=== PATIENT | female | born 1965 | race Caucasian/White ===

== ENCOUNTER 2017-09-29 13:42 | Emergency (ER) | payer BC ==
[~2017-09-29] VITALS: Ht 165.1 cm; Wt 105.0 kg
[~2017-09-29 13:42] MED LIST: BENICAR20 MG PO; Glucophage PO; Hydrodiuril,Oretic,E PO; Tylenol Extra Streng PO; ZOLOFT25 MG PO
[2017-09-29] MEDS ORDERED: MEDROL DOSEPAK4 MG PO (17:00)
[2017-09-29] MEDS ORDERED: GABAPENTIN300 MG PO (17:00)
[2017-09-29 17:15] VITALS: BP 142/77
== END 2017-09-29 17:17 | disposition home or self-care (01) ==
LOC: EME 13:42
DX: M54.16 Radiculopathy, lumbar region (principal); G89.29 Other chronic pain; M54.5 Low back pain; Z91.018 Allergy to other foods
CPT/HCPCS: 99281; 99284; J1100; J3010